=== PATIENT | male | born 1970 ===

== ENCOUNTER 2020-11-22 15:22 | Emergency (ER) | payer BC ==
[~2020-11-22] VITALS: Ht 177.8 cm; Wt 95.3 kg
--- NOTE | 2020-11-22 16:17 | NUR ---
[employer] tech at the bedside.
== END 2020-11-22 17:55 | disposition home or self-care (01) ==
LOC: ER 15:22
DX: M25.561 Pain in right knee (principal); U07.1 COVID-19; Z88.6 Allergy status to analgesic agent; J98.11 Atelectasis
CPT/HCPCS: 71045; A4663